=== PATIENT | female | born 1950 | race Caucasian/White ===

== ENCOUNTER 2017-01-25 18:00 | Emergency (ER) | payer OTHER, MEDICAID ==
[~2017-01-25 18:00] MED LIST: AMLODIPINE BESY10 M1 PO; AMLODIPINE10 M1 PO; BG MC; COL100 PO; DIALYVITE 8001 TAB PO; DIOVAN320 MG PO; ECO81 PO; FLA500 PO; GABAPENTIN400 M1 PO; GLU5 PO; HYDROCHLOROTHIA25 MG PO; LAC PO; LANTUS SOLOS100 U/M1; LANTUS SOLOS100 U/M1 SQ; LEVAQUIN250 MG PO; LIPI10 PO; LIPITOR10 MG PO; LOPRESSOR50 MG PO; LOSARTAN POTAS100 M1 PO; MAC100 PO; METFORMIN HCL850 MG PO; METOPROLOL SUCC50 M2 PO; METOPROLOL TART50 MG PO; NEPHRO-VITE1 TAB PO; NEURONTIN400 MG PO; OMEPRAZOLE DR20 M1 PO; PHOSLO667 MG PO; PRI20 PO; PROZAC40 MG PO; RENVELA800 M1 PO; THERAGRAN-M1 TA4 PO
[2017-01-25 18:06] VITALS: BP 149/58
== END 2017-01-25 19:06 | disposition left against medical advice (07) ==
LOC: ED 18:00
DX: Z53.21 Procedure and treatment not carried out due to patient leaving prior to being seen by health care provider (principal)

== ENCOUNTER 2017-04-08 00:01 | Emergency (ER) | payer OTHER, MEDICAID ==
[2017-04-08 01:19] LABS: BASOPHIL % 0.4 % (0-2); PLATELET COUNT 198 x10^3mcL (130-400); RED CELL DISTRIBUTION WIDTH 13.6 % (11.5-14.5)
[2017-04-08 01:32] LABS: ALBUMIN 3.6 g/dL (3.4-5.0); BILIRUBIN TOTAL 0.5 mg/dL (0.20-1.00); CALCIUM 8.9 mg/dL (8.5-10.1); CARBON DIOXIDE 30.1 mmol/L (21-32); POTASSIUM SERUM 4.9 mmol/L (3.5-5.1); TOTAL PROTEIN, SERUM 7.8 g/dL (6.4-8.2)
[2017-04-08 01:38] LABS: CREATININE SERUM 8.6 mg/dL (0.6-1.0)
[2017-04-08 02:25] VITALS: BP 170/79
== END 2017-04-08 02:25 | disposition home or self-care (01) ==
LOC: ED 00:01
PROVIDERS: Emergency Medicine
DX: R07.89 Other chest pain (principal); E11.22 Type 2 diabetes mellitus with diabetic chronic kidney disease; I12.0 Hypertensive chronic kidney disease with stage 5 chronic kidney disease or end stage renal disease; N18.6 End stage renal disease; E78.00 Pure hypercholesterolemia, unspecified; F43.9 Reaction to severe stress, unspecified; Z99.2 Dependence on renal dialysis
CPT/HCPCS: 36415; J1885

== ENCOUNTER 2017-05-10 15:06 | Inpatient (IN) | payer OTHER, MEDICAID ==
[~2017-05-10] VITALS: Ht 154.9 cm; Wt 74.0 kg
[2017-05-10 16:53] LABS: BASOPHIL % 0.2 % (0-2); PLATELET COUNT 286 x10^3mcL (130-400); RED CELL DISTRIBUTION WIDTH 13.5 % (11.5-14.5)
[2017-05-10 17:20] LABS: CALCIUM 8.7 mg/dL (8.5-10.1); CARBON DIOXIDE 33.4 mmol/L (21-32); CREATININE SERUM 2.8 mg/dL (0.6-1.0); POTASSIUM SERUM 3.5 mmol/L (3.5-5.1)
[2017-05-10 17:26] LABS: ALBUMIN 3.5 g/dL (3.4-5.0); BILIRUBIN TOTAL 0.29 mg/dL (0.20-1.00); PHOSPHOROUS 1.9 mg/dL (2.5-4.9); TOTAL PROTEIN, SERUM 8.1 g/dL (6.4-8.2)
[2017-05-10 18:06] LABS: UA SPECIFIC GRAVITY 1.015 (1.005-1.035); microscopic required? YES; urine erythrocyte 1+ (NEGATIVE)
[2017-05-10] MEDS ORDERED: GABAPENTIN400 M1 PO (18:38)
[2017-05-10] MEDS ORDERED: FUROSEMIDE80 MG PO (18:39)
[2017-05-10] MEDS ORDERED: NOR10 PO (18:39)
[2017-05-10] MEDS ORDERED: DIALYVITE 8001 TAB PO (18:40)
[2017-05-10] MEDS ORDERED: LIPI10 PO (18:40)
[2017-05-10] MEDS ORDERED: STOOL SOFTENER100 MG PO (18:41)
[2017-05-10] MEDS ORDERED: COZAAR100 MG PO (18:41)
[2017-05-10] MEDS ORDERED: GOOD SENSE OMEP20 MG PO (18:42)
[2017-05-10 19:10] LABS: MAGNESIUM 2.1 mg/dL (1.8-2.4)
[2017-05-10 19:14] LABS: AMPHETAMINE QUAL UR NONE DETECTED (NEG <=1000)
[2017-05-10 19:16] LABS: T3 TOTAL 0.83 ng/mL
[2017-05-10 19:17] VITALS: BP 181/58
[2017-05-10 19:30] LABS: FREE T4 1.27 ng/dL (0.76-1.46); FREE THYROXINE INDEX 2.9 ug/dL (1.4-4.5); T4(THYROXINE) 8.7 ug/dL (4.7-13.3)
[2017-05-10 19:42] LABS: CHOLESTEROL/HDL RATIO 3.5
[2017-05-10 21:24] VITALS: BP 104/69
[2017-05-10 22:37] VITALS: BP 166/50
[2017-05-11] VITALS (8 sets, daily range): BP systolic 155–185; BP diastolic 50–99; Ht 154.9 cm; Wt 74.0 kg
[2017-05-11 10:17] LABS: BASOPHIL % 0.3 % (0-2); PLATELET COUNT 239 x10^3mcL (130-400); RED CELL DISTRIBUTION WIDTH 13.6 % (11.5-14.5)
[2017-05-11 10:42] LABS: CARBON DIOXIDE 31.9 mmol/L (21-32); MAGNESIUM 1.9 mg/dL (1.8-2.4); PHOSPHOROUS 2.6 mg/dL (2.5-4.9); POTASSIUM SERUM 4.2 mmol/L (3.5-5.1)
[2017-05-11 10:53] LABS: CREATININE SERUM 4.4 mg/dL (0.6-1.0)
[2017-05-12 05:40] VITALS: BP 161/53
[2017-05-12 07:30] VITALS: BP 189/63
[2017-05-12 09:10] VITALS: BP 176/59
[2017-05-12 10:18] VITALS: BP 169/55
[2017-05-12 10:49] VITALS: BP 169/55
== END 2017-05-12 11:15 | disposition home or self-care (01) | DRG 391 ==
LOC: ED 15:06 → DU 18:02
PROVIDERS: Emergency Medicine; Family Medicine; ADMIT Family Medicine
DX: K21.9 Gastro-esophageal reflux disease without esophagitis (principal); N17.0 Acute kidney failure with tubular necrosis; N18.6 End stage renal disease; I12.0 Hypertensive chronic kidney disease with stage 5 chronic kidney disease or end stage renal disease; N39.0 Urinary tract infection, site not specified; I42.9 Cardiomyopathy, unspecified; B96.20 Unspecified Escherichia coli [E. coli] as the cause of diseases classified elsewhere; I16.0 Hypertensive urgency; E83.39 Other disorders of phosphorus metabolism; E11.65 Type 2 diabetes mellitus with hyperglycemia; E11.51 Type 2 diabetes mellitus with diabetic peripheral angiopathy without gangrene; G47.00 Insomnia, unspecified; D64.9 Anemia, unspecified; E78.5 Hyperlipidemia, unspecified; E03.9 Hypothyroidism, unspecified; Z16.12 Extended spectrum beta lactamase (ESBL) resistance; Z16.24 Resistance to multiple antibiotics; Z99.2 Dependence on renal dialysis; Z79.82 Long term (current) use of aspirin; Z79.84 Long term (current) use of oral hypoglycemic drugs; Z68.30 Body mass index [BMI] 30.0-30.9, adult
CPT/HCPCS: 83880; 84439; J0360; J0696; J3490; J7050; Q0163

== ENCOUNTER 2017-10-05 01:10 | Inpatient (IN) | payer OTHER, MEDICAID ==
[~2017-10-05] VITALS: Ht 154.9 cm; Wt 77.6 kg
[2017-10-05] VITALS (7 sets, daily range): BP systolic 171–210; BP diastolic 49–66
[~2017-10-05 01:10] MED LIST changes: +COZAAR100 MG PO; +FUROSEMIDE80 MG PO; +GOOD SENSE OMEP20 MG PO; +NOR10 PO; +STOOL SOFTENER100 MG PO
--- NOTE | 2017-10-05 01:43 | NUR ---
PT C/O CHEST PAIN AND HEADACHE 9/10 SINCE 1 HR AGO. PT IS ESRD RECEIVES DIALYSIS, NO OTHER PMHX NOTED. PT IS IN NO ACUTE DISTRESS
[2017-10-05 02:39] LABS: BASOPHIL % 0.4 % (0-2); PLATELET COUNT 193 x10^3mcL (130-400)
[2017-10-05 02:49] LABS: CALCIUM 8.6 mg/dL (8.5-10.1); CARBON DIOXIDE 32.7 mmol/L (21-32); CREATININE SERUM 2.6 mg/dL (0.6-1.0); POTASSIUM SERUM 3.7 mmol/L (3.5-5.1)
[2017-10-05 02:58] LABS: ALBUMIN 3.5 g/dL (3.4-5.0); BILIRUBIN TOTAL 0.5 mg/dL (0.20-1.00); TOTAL PROTEIN, SERUM 7.7 g/dL (6.4-8.2)
--- NOTE | 2017-10-05 03:42 | NUR ---
PT RESTING IN NO ACUTE DISTRESS NO C/O CP NOW
[2017-10-05] MEDS ORDERED: ATENOLOL50 MG PO (03:45)
--- NOTE | 2017-10-05 04:00 | NUR ---
PT RESTING IN STRECTHER, NO ACUTE DISTRESS NOTED. WILL CONT TO MONITOR
--- NOTE | 2017-10-05 04:22 | NUR ---
DR. JEAN AT BEDSIDE, PT IN NO ACUTE DISTRESS
--- NOTE | 2017-10-05 04:32 | NUR ---
REPORT CALLED TO FLOOR AND TAKE BY TAMELA
--- NOTE | 2017-10-05 05:08 | NUR ---
REC'D PT FROM ED VIA KADI. AAOX4. [place]ONG KONGER SPEAKING ONLY. ABLE TO MAKE NEEDS KNOWN. ORIENTED TO ROOM AND SURROUNDINGS. TELE# 23 SINUS BRADYCARDIA 57. LUNG SOUNDS CTA. NO SOB, ON 2L NC. BREATHING EVEN AND UNLABORED. ABD ROUND AND ACTIVE, LBM 10/04/17. NO EDEMA NOTED. IV ACCESS TO THE RAC INTACT. BED IN LOWEST POSITION. CALL LIGHT WITHIN REACH. WILL PROCEED TO THE PLAN OF CARE.
[2017-10-05 05:33] LABS: IRON 56 ug/dL (50-170)
[2017-10-05 05:34] LABS: TOTAL IRON BINDING CAPACITY 238 ug/dL (250-450)
[2017-10-05 05:39] LABS: RED BLOOD CELLS 3.31 M/mm3 (4.10-5.10)
[2017-10-05 05:43] LABS: T3 TOTAL 0.74 ng/mL
[2017-10-05 05:46] LABS: FREE T4 1.34 ng/dL (0.76-1.46); FREE THYROXINE INDEX 3.2 ug/dL (1.4-4.5); T4(THYROXINE) 8.1 ug/dL (4.7-13.3)
--- NOTE | 2017-10-05 06:58 | NUR ---
PT IS RESTING WITH THE HOB ELEVATED. NO REP DISTRESS NOTED. DENIES PAIN AT THIS TIME. ALL NEEDS MET AND ATTENDED TO. BS 197, PT REFUSED COVERAGE. DR JEAN MADE AWARE. IV ACCESS PATENT AND INTACT. WILL ENDORSE ALL CARE TO ONCOMING NURSE.
--- NOTE | 2017-10-05 07:44 | NUR ---
RECEIVED PT FROM NIGHT NURSE IN NO ACUTE DISTRESS. RESPIRATIONS EVEN AND UNLABORED ON 2L VIA NC. PT ENCOURAGED TO USE IS. ABX INFUSING AT BEDSIDE. BED IN LOWEST POSITION. CALL LIGHT WITHIN REACH. WILL CONTINUE TO MONITOR.
[2017-10-05 11:19] LABS: PHOSPHOROUS 2.1 mg/dL (2.5-4.9)
[2017-10-05 11:20] LABS: CHOLESTEROL/HDL RATIO 2.2
--- NOTE | 2017-10-05 12:20 | NUR ---
PT RESTING IN BED IN NO ACUTE DISTRESS, RESPIRATIONS EVEN AND UNLABORED ON 2L VIA NC. AAOX4. ABX INFUSING AT BEDSIDE. BED IN LOWEST POSITION. CALL LIGHT WITHIN REACH. WILL CONTINUE TO MONITOR.
--- NOTE | 2017-10-05 13:44 | NUR ---
1. Recommend Renal, CCHO 60gm diet due to pt with DM and ESRD on HD. 2. Recommed D/C Theragran.
--- NOTE | 2017-10-05 13:44 | NUR ---
Initial Nutrition Assessment Dx: CHF exacerbation PMHx: CHF, ESRD on HD, DLD, DM PSHx: Cholecystectomy, (x2), AVF fistula Labs: (10/05) Na:134L, BH, Cr:2.6H, Phos:pending, A1c:7.6H, H/H:10.6/31L Meds: Colace, Glucotrol, Humulin, Lactinex, Lasix, Nephrovite, Theragran, Vasotec, Zofran Diet:CCCHO PO Intake: (10/05) B:80% Ht: 61in, 5'1" Wt: 170#, 77.28kg BMI: 32.2kg/m2 (obesiry classI) IBW: 105#, 47.7kg %IBW: 162% UBW:pt does not know Age:67 y/o female Food Allergies:NKFA Skin: intact;+shunt to left arm Markos:21 Edema:None GI: active bowel sounds Last BM:10/04, formed Nursing Trigger: N/V/D>3days Pt admitted with ACSDHF with BNP 2272 likely secondary to ESRD, possible aspiration pneumonia and VMN with Cr 2.6, 2/2 ESRD on HD. Pt had been c/o SOB and CP x 2 weeks per H&P. During visit, observed pt laying in bed with at bedside. Pt's translated during RD interview. Pt reports to having a fair appetite (ate 80% of breakfast). RD noticed pt with missing top teeth but pt said current diet texture is fine. Pt with nausea earlier this morning but now resolved once medication was given. Spoke to Dr. Murphy about adding renal restricton to current diet order and discontinuing Theragran, since pt is on renal vitamin (Nephrovite). Doctor agreeable with reocmmendations and input order. Problem with: N: No V:No D: No C:No Problems with: Chewing:missing teeth with no chewing problems Swallowing: No Current appetite: Fair to good Recent wt change:unable to assess %wt change:N/A Vitamin/Supplement use:MVI Special diet at home:pt does not follow a renal or diabetic diet at home Physical activity: Walking Education: pt and declined nutrition education at this time due to being familiar with renal/CCHO diet. Estimated Nutritional Needs Based on ideal body weight 48kg Energy: 1440-1680kcal/d (30-35kcal/kg for ESRD on HD) Protein: 58-72g/d (1.2-1.5g/kg for ESRD on HD) Fluid: <1000ml/d or per doctor for ESRD on HD Nutrition Diagnosis 1. Altered nutrition labs related to renal and endocrine dysfunction as evidenced by elevated Cr:2.6, B and A1c:7.6. Intervention 1. Recommend Renal, CCHO 60gm diet due to pt with DM and ESRD on HD. 2. Recommed D/C Theragran. Monitor/Evaluate Goal: PO intake at least 75% of estimated needs Monitor: PO intake, Labs, GI function F/U in 3-5 days as moderate risk:10/08-
--- NOTE | 2017-10-05 18:11 | NUR ---
PT RESTING IN BED IN NO ACUTE DISTRESS. RESPIRATIONS EVEN AND UNLABORED ON 2L VIA NC. AAOX4. IVF INFUSING AT BEDSIDE AT 10ML/HR. FAMILY AT BEDSIDE. BED IN LOWEST POSITION. CALL LIGHT WITHIN REACH. WILL CONTINUE TO MONITOR.
--- NOTE | 2017-10-05 19:37 | NUR ---
REC'D REPORT FROM DAY NURSE BRITANY. AAOX4. SLOVENIAN SPEAKING ONLY. ABLE TO MAKE NEEDS KNOWN. NO RESP DISTRESS NOTED. DENIES CP. TELE# 23. LUNG SOUNDS ARE CTA. ON 2L NC. NO SOB. BREATHING EVEN AND UNLABORED. ABD IS ROUND AND ACTIVE. L UPPER ARM SHUNT WITH BRUIT/THRILL NOTED. NO EDEMA NOTED. IV ACCESS TO THE RAC PATENT AND INTACT INFUSING WELL. BED IN LOWEST POSITION. AT BEDSIDE. CALL LIGHT WITHIN REACH. WILL PROCEED TO THE PLAN OF CARE.
--- NOTE | 2017-10-05 19:42 | NUR ---
DR LAN MADE AWARE OF PT BP AT 183/49, HR 58, AND WILL BE HOLDING HYDRALAZINE SINCE PT WILL BE HAVING HEMODIALYSIS THIS EVENING.
--- NOTE | 2017-10-05 21:13 | NUR ---
HEMODIALYSIS NURSE IN THE ROOM WITH PT.
--- NOTE | 2017-10-05 23:57 | NUR ---
HEMODIALYSIS NURSE HERBERTH HAD STOPPED DUE TO THE C/O OF THE PAIN HAVING CHEST PAIN. BP 198/58, HR 58, O2 SAT 98%. WILL BE GIVING HYDRALAZINE.
[2017-10-06 00:21] VITALS: BP 181/51
--- NOTE | 2017-10-06 00:22 | NUR ---
PT GIVEN PAIN MED HEADACHE AND SCHEDULE MEDS. RE-CHECKED PT V/S BP 181/51 (86), HR 65, TEMP 99.8, O2 SAT 98%. WILL CONT TO MONITOR.
[2017-10-06 05:34] VITALS: BP 122/50
--- NOTE | 2017-10-06 05:46 | NUR ---
ROUNDS MADE, PT IS SLEEPING BUT EASILY AROUSABLE. NO RESP DISTRESS NOTED. WILL CONT TO MONITOR.
[2017-10-06 06:20] LABS: CALCIUM 8.7 mg/dL (8.5-10.1); CARBON DIOXIDE 28.4 mmol/L (21-32); MAGNESIUM 1.9 mg/dL (1.8-2.4); PHOSPHOROUS 3.2 mg/dL (2.5-4.9); POTASSIUM SERUM 3.1 mmol/L (3.5-5.1)
--- NOTE | 2017-10-06 06:24 | NUR ---
PT SLEPT PERIODICALLY THROUGHOUT THE SHIFT. NO RESP DISTRESS NOTED. DENIES CP. ALL NEEDS MET AND ATTENDED TO. IV ACCESS PATENT AND HEPLOCK. WILL ENDORSE ALL CARE TO ONCOMING NURSE.
[2017-10-06 06:26] LABS: BASOPHIL % 0.5 % (0-2); PLATELET COUNT 194 x10^3mcL (130-400); RED CELL DISTRIBUTION WIDTH 14.2 % (11.5-14.5)
--- NOTE | 2017-10-06 07:29 | NUR ---
RECEIVED PT FROM NIGHT NURSE IN NO ACUTE DISTRESS. PT RESTING IN BED, RESPIRATIONS EVEN AND UNLABORED ON 2L VIA NC. AAOX4. DENIES CP. BED IN LOWEST POSITION. CALL LIGHT WITHIN REACH. WILL CONTINUE TO MONITOR.
[2017-10-06 08:58] VITALS: BP 184/47
--- NOTE | 2017-10-06 13:59 | NUR ---
PT RESTING IN BED IN NO ACUTE DISTRESS. RESPIRATIONS EVEN AND UNLABORED ON 2L VIA NC. AAOX4. PT HEPLOCKED, SITE C/D/I. FAMILY AT BEDSIDE. BED IN LOWEST POSITION. CALL LIGHT WITHIN REACH. WILL CONTINUE TO MONITOR.
[2017-10-06 14:30] VITALS: BP 163/59
[2017-10-06 17:55] VITALS: BP 184/50
--- NOTE | 2017-10-06 19:07 | NUR ---
PT RESTING IN BED IN NO ACUTE DISTRESS. RESPIRAITIONS EVEN AND UNLABORED ON 2L VIA NC. IV HEPLOCKED, C/D/I. FAMILY AT BEDSIDE. BED IN LOWEST POSITION. CALL LIGHT WITHIN REACH. WILL ENDORSE TO NIGHT NURSE
--- NOTE | 2017-10-06 19:38 | NUR ---
REC'D PT FROM DAY NURSE. AAOX4. DENIES PAIN AT THIS TIME. NO RESP DISTRESS NOTED. TELE# 23. LUNG SOUNDS ARE CTA. ON 2L NC. NO SOB. BREATHING EVEN AND UNLABORED. ABD IS ROUND AND ACTIVE. L UPPER ARM AVF SHUNT BRUIT/THRILL NOTED. NO EDEMA NOTED. IV ACCESS TO THE RAC PATENT AND HEPLOCKED. BED IN LOWEST POSITION. AT BEDSIDE. CALL LIGHT WITHIN REACH. WILL PROCEED TO THE PLAN OF CARE.
[2017-10-06 20:59] VITALS: BP 170/51
--- NOTE | 2017-10-06 22:40 | NUR ---
ROUNDS MADE, PT IS SLEEPING AND RESTING WELL. NO RESP DISTRESS NOTED. WILL CONT TO MONITOR.
--- NOTE | 2017-10-07 01:31 | NUR ---
ROUNDS MADE, PT IS SLEEPING COMFORTABLY WITH THE HOB ELEVATED. NO S/S OF RESP DISTRESS NOTED. WILL CONT TO MONITOR.
[2017-10-07 05:47] VITALS: BP 171/44
[2017-10-07 06:40] LABS: CALCIUM 8.7 mg/dL (8.5-10.1); CARBON DIOXIDE 27.1 mmol/L (21-32); MAGNESIUM 1.9 mg/dL (1.8-2.4); PHOSPHOROUS 3.8 mg/dL (2.5-4.9); POTASSIUM SERUM 3.9 mmol/L (3.5-5.1)
--- NOTE | 2017-10-07 06:50 | NUR ---
PT SLEPT THROUGHOUT THE SHIFT. NO RESP DISTRESS NOTED. DENIES CP/PRESSURE. BLOOD SUGAR 78, NO COVERAGE. DR JANE MADE AWARE ABOUT HOLDING GLUCOTROL. ALL NEEDS MET AND ATTENDED TO. IV ACCESS RAC, HEPLOCKED. WILL ENDORSE ALL CARE TO ONCOMING NURSE.
[2017-10-07 07:01] LABS: BASOPHIL % 0.2 % (0-2); PLATELET COUNT 192 x10^3mcL (130-400); RED CELL DISTRIBUTION WIDTH 14.3 % (11.5-14.5)
--- NOTE | 2017-10-07 07:15 | NUR ---
AAO X4.CAPE VERDEAN MOSTLY.DENIES ANY PAIN/DISCOMFORT.LUNGS CLEAR.ON SB ON THE MONITOR HR=58.IV SALINE LOCKED.LUKE WITH AV SHUNT FOR DIALYSIS WITH + BRUIT AND THRILL.DIALYSIS MWF.CALL LIGHT WITHIN REACH.INSTRUCTED TO CALL FOR ANY PAIN/DISCOMFORT.WILL CONTINUE TO MONITOR PT.
--- NOTE | 2017-10-07 08:10 | NUR ---
AND MEDICINE TEAM AT BEDSIDE.INFORMED PT ABOUT THE PLAN OF CARE.WILL D/C TODAY AND WILL HAVE DIALYSIS OUT PATIENT.PT COOPERATIVE WITH THE PLAN OF CARE.
[2017-10-07] MEDS ORDERED: NOR10 PO (09:06)
[2017-10-07] MEDS ORDERED: ECO81 PO (09:06)
[2017-10-07 09:28] VITALS: BP 186/85
[2017-10-07 10:50] VITALS: BP 115/49
[2017-10-07 11:45] VITALS: Ht 154.9 cm; Wt 77.6 kg
--- NOTE | 2017-10-07 11:51 | NUR ---
PT D/C TO HOME IV AND MONITOR D/'C.DISCHARGE INSTRUCTION GIVEN.PT VERBALIZES UNDERSTANDING.WENT DOWN VIA WHEELCHAIR ACCOMPANIED BY AND FINISH GRINDER.
== END 2017-10-07 12:03 | disposition home or self-care (01) | DRG 640 ==
LOC: ED 01:10 → DU 03:51
PROVIDERS: Emergency Medicine; Family Medicine; ADMIT Family Medicine
DX: E87.8 Other disorders of electrolyte and fluid balance, not elsewhere classified (principal); I50.43 Acute on chronic combined systolic (congestive) and diastolic (congestive) heart failure; N17.0 Acute kidney failure with tubular necrosis; N18.6 End stage renal disease; I13.2 Hypertensive heart and chronic kidney disease with heart failure and with stage 5 chronic kidney disease, or end stage renal disease; I16.0 Hypertensive urgency; M94.0 Chondrocostal junction syndrome [Tietze]; E87.1 Hypo-osmolality and hyponatremia; E87.6 Hypokalemia; E11.22 Type 2 diabetes mellitus with diabetic chronic kidney disease; E11.65 Type 2 diabetes mellitus with hyperglycemia; D63.1 Anemia in chronic kidney disease; E03.9 Hypothyroidism, unspecified; E66.9 Obesity, unspecified; Z68.31 Body mass index [BMI] 31.0-31.9, adult; Z99.2 Dependence on renal dialysis
CPT/HCPCS: 83880; 84439; 94150; J0360; J1940; J1956; J2405; J3490; J7620; Q0092

== ENCOUNTER 2018-12-09 10:59 | Inpatient (IN) | payer OTHER, MEDICAID ==
[~2018-12-09] VITALS: Ht 154.9 cm; Wt 74.4 kg
[~2018-12-09 10:59] MED LIST changes: +AMLODIPINE BESY10 M2 PO; +AMOXICILLIN500 M1 PO; +ATENOLOL50 MG PO; +ATORVASTATIN CA10 M1 PO; +DIALYVITE1 TAB PO; +GABAPENTIN100 M2 PO; +LANTUS SOLOS100 U/M1 SC; +NAPROSYN500 MG PO; +OMEPRAZOLE40 M1 PO; +TENORMIN50 MG PO; +ZITHROMAX500 MG PO; +[UNRECOGNIZED DRUG - CODE] PO; +[UNRECOGNIZED DRUG - CODE] PO
[2018-12-09 11:08] VITALS: Ht 154.9 cm; Wt 74.4 kg
[2018-12-09 11:46] LABS: BASOPHIL % 0.3 % (0-2); PLATELET COUNT 184 x10^3mcL (130-400)
[2018-12-09 11:53] LABS: RED CELL DISTRIBUTION WIDTH 14.9 % (11.5-14.5)
[2018-12-09 12:10] LABS: ALBUMIN 3.4 g/dL (3.4-5.0); BILIRUBIN TOTAL 0.8 mg/dL (0.20-1.00); CALCIUM 7.8 mg/dL (8.5-10.1); CARBON DIOXIDE 22.5 mmol/L (21-32)
[2018-12-09 12:12] LABS: TOTAL PROTEIN, SERUM 8.3 g/dL (6.4-8.2)
[2018-12-09 12:13] LABS: CREATININE SERUM 9.1 mg/dL (0.6-1.0); POTASSIUM SERUM 6.3 mmol/L (3.5-5.1)
[2018-12-09] MEDS ORDERED: DIALYVITE1 TAB PO (13:42)
[2018-12-09] MEDS ORDERED: TIZANIDINE4 M1 PO (13:42)
[2018-12-09] MEDS ORDERED: ATENOLOL50 MG PO (13:43)
[2018-12-09] MEDS ORDERED: D3-50001 TAB PO (13:43)
[2018-12-09] MEDS ORDERED: AMLODIPINE BESY10 M2 PO (13:44)
[2018-12-09] MEDS ORDERED: GABAPENTIN100 M2 PO (13:44)
[2018-12-09] MEDS ORDERED: OMEPRAZOLE40 M1 PO (13:45)
[2018-12-09] MEDS ORDERED: TIROSINT50 MC1 PO (13:45)
[2018-12-09 15:04] VITALS: BP 155/63
[2018-12-09 15:34] VITALS: BP 155/63
[2018-12-09 17:06] VITALS: BP 151/59
[2018-12-09 21:54] VITALS: BP 165/47
[2018-12-10 02:45] VITALS: BP 165/48
[2018-12-10 06:08] VITALS: BP 155/59
[2018-12-10 06:42] LABS: BASOPHIL % 0.1 % (0-2); PLATELET COUNT 173 x10^3mcL (130-400)
[2018-12-10 06:44] LABS: RED CELL DISTRIBUTION WIDTH 14.8 % (11.5-14.5)
[2018-12-10 07:03] LABS: CALCIUM 8.2 mg/dL (8.5-10.1); CARBON DIOXIDE 23.6 mmol/L (21-32); MAGNESIUM 2.2 mg/dL (1.8-2.4); POTASSIUM SERUM 4.7 mmol/L (3.5-5.1)
[2018-12-10 08:45] VITALS: BP 161/51
[2018-12-10 12:30] VITALS: BP 154/52
[2018-12-10 17:34] VITALS: BP 116/47
[2018-12-10 20:30] VITALS: BP 148/56
[2018-12-11 05:51] VITALS: BP 143/65
[2018-12-11 06:01] LABS: BASOPHIL % 0.1 % (0-2); PLATELET COUNT 178 x10^3mcL (130-400)
[2018-12-11 06:17] LABS: RED CELL DISTRIBUTION WIDTH 15.1 % (11.5-14.5)
[2018-12-11 06:36] LABS: CALCIUM 8.5 mg/dL (8.5-10.1); CARBON DIOXIDE 21.1 mmol/L (21-32); MAGNESIUM 2.3 mg/dL (1.8-2.4); PHOSPHOROUS 7.3 mg/dL (2.5-4.9); POTASSIUM SERUM 5.2 mmol/L (3.5-5.1)
[2018-12-11 07:17] LABS: CREATININE SERUM 7.9 mg/dL (0.6-1.0)
[2018-12-11 08:45] VITALS: BP 148/40
[2018-12-11 12:29] VITALS: BP 157/46
[2018-12-11 17:00] VITALS: BP 102/47; BP 151/41
[2018-12-11 20:38] VITALS: BP 137/60
[2018-12-12 06:30] VITALS: BP 163/48
[2018-12-12 06:46] LABS: PLATELET COUNT 211 x10^3mcL (130-400)
[2018-12-12 06:58] LABS: CALCIUM 8.9 mg/dL (8.5-10.1); CARBON DIOXIDE 26.4 mmol/L (21-32); PHOSPHOROUS 5.1 mg/dL (2.5-4.9); POTASSIUM SERUM 4.4 mmol/L (3.5-5.1)
[2018-12-12 07:02] LABS: CREATININE SERUM 5.3 mg/dL (0.6-1.0); RED CELL DISTRIBUTION WIDTH 14.8 % (11.5-14.5)
[2018-12-12 07:03] LABS: BASOPHIL % 0 % (0-2)
[2018-12-12 08:27] VITALS: BP 158/48
[2018-12-12] MEDS ORDERED: AMOXICILLIN500 MG PO (08:50)
[2018-12-12] MEDS ORDERED: ROBL PO (08:50)
[2018-12-12] MEDS ORDERED: PRE20 PO (08:51)
[2018-12-12 12:28] VITALS: BP 158/48
[2018-12-12 12:36] VITALS: BP 161/49
== END 2018-12-12 15:36 | disposition home or self-care (01) | DRG 682 ==
LOC: ED 10:59 → DU 13:07
PROVIDERS: ADMIT Internal Medicine
DX: I12.0 Hypertensive chronic kidney disease with stage 5 chronic kidney disease or end stage renal disease (principal); J18.9 Pneumonia, unspecified organism; N18.6 End stage renal disease; J96.00 Acute respiratory failure, unspecified whether with hypoxia or hypercapnia; E87.1 Hypo-osmolality and hyponatremia; J44.1 Chronic obstructive pulmonary disease with (acute) exacerbation; E11.22 Type 2 diabetes mellitus with diabetic chronic kidney disease; E11.65 Type 2 diabetes mellitus with hyperglycemia; E87.5 Hyperkalemia; F41.8 Other specified anxiety disorders; E03.9 Hypothyroidism, unspecified; M19.90 Unspecified osteoarthritis, unspecified site; I25.10 Atherosclerotic heart disease of native coronary artery without angina pectoris; Z68.30 Body mass index [BMI] 30.0-30.9, adult; Z95.0 Presence of cardiac pacemaker; Z79.4 Long term (current) use of insulin; Z79.84 Long term (current) use of oral hypoglycemic drugs; Z99.2 Dependence on renal dialysis
CPT/HCPCS: 82962; 83880; 87804; 94150; C9113; J0885-EC; J1815; J2185; J2405; J2543; J2920; J3370; J3490; J7030; J7050; J7120; J7613; J7620; Q0092

== ENCOUNTER 2019-01-31 02:26 | Inpatient (IN) | payer OTHER, MEDICAID ==
[~2019-01-31] VITALS: Ht 157.5 cm; Wt 73.0 kg
[2019-01-31] VITALS (7 sets, daily range): BP systolic 136–203; BP diastolic 49–66
[~2019-01-31 02:26] MED LIST changes: +AMOXICILLIN500 MG PO; +D3-50001 TAB PO; +PRE20 PO; +ROBL PO; +TIROSINT50 MC1 PO; +TIZANIDINE4 M1 PO
[2019-01-31 03:03] LABS: BASOPHIL % 0.2 % (0-2); PLATELET COUNT 317 x10^3mcL (130-400)
[2019-01-31 03:04] LABS: RED CELL DISTRIBUTION WIDTH 16.1 % (11.5-14.5)
[2019-01-31 03:26] LABS: ALBUMIN 3.7 g/dL (3.4-5.0); BILIRUBIN TOTAL 0.44 mg/dL (0.20-1.00); CALCIUM 8.9 mg/dL (8.5-10.1); CARBON DIOXIDE 34.1 mmol/L (21-32); TOTAL PROTEIN, SERUM 7.7 g/dL (6.4-8.2)
[2019-01-31 03:29] LABS: CREATININE SERUM 4.7 mg/dL (0.6-1.0)
[2019-01-31 05:46] LABS: T3 TOTAL 0.72 ng/mL
[2019-01-31 06:23] LABS: MAGNESIUM 2.1 mg/dL (1.8-2.4); PHOSPHOROUS 2.8 mg/dL (2.5-4.9)
[2019-01-31 06:33] LABS: FREE T4 1.39 ng/dL (0.76-1.46); FREE THYROXINE INDEX 3.8 ug/dL (1.4-4.5); T4(THYROXINE) 9.5 ug/dL (4.7-13.3)
[2019-01-31 06:34] LABS: CHOLESTEROL/HDL RATIO 4.2
[2019-02-01 05:58] VITALS: BP 180/52
[2019-02-01 08:48] VITALS: BP 171/48
[2019-02-01 12:16] VITALS: BP 157/49
[2019-02-01 17:29] VITALS: BP 166/52
[2019-02-01 20:54] VITALS: BP 160/54
[2019-02-02 06:12] VITALS: BP 163/52
[2019-02-02 06:42] LABS: BASOPHIL % 0.4 % (0-2); PLATELET COUNT 288 x10^3mcL (130-400)
[2019-02-02 07:04] LABS: CALCIUM 8.4 mg/dL (8.5-10.1); CARBON DIOXIDE 26.3 mmol/L (21-32); MAGNESIUM 2.1 mg/dL (1.8-2.4); PHOSPHOROUS 4.2 mg/dL (2.5-4.9); POTASSIUM SERUM 4.1 mmol/L (3.5-5.1)
[2019-02-02 07:08] LABS: CREATININE SERUM 6.2 mg/dL (0.6-1.0)
[2019-02-02 08:01] VITALS: BP 175/59
[2019-02-02 12:12] VITALS: BP 155/47
[2019-02-02 17:20] VITALS: BP 143/52
[2019-02-02 20:38] VITALS: BP 168/50
[2019-02-03 05:27] VITALS: BP 159/57
[2019-02-03 09:24] VITALS: BP 165/51
[2019-02-03 12:03] VITALS: BP 148/53
[2019-02-03 13:07] VITALS: BP 148/53
[2019-02-03 16:36] VITALS: BP 119/51
[2019-02-03 18:55] VITALS: BP 142/52
== END 2019-02-03 19:02 | disposition home or self-care (01) | DRG 205 ==
LOC: ED 02:26 → DU 05:02
PROVIDERS: Emergency Medicine; ADMIT Internal Medicine
DX: M94.0 Chondrocostal junction syndrome [Tietze] (principal); N17.0 Acute kidney failure with tubular necrosis; N18.6 End stage renal disease; G90.9 Disorder of the autonomic nervous system, unspecified; I16.0 Hypertensive urgency; E11.65 Type 2 diabetes mellitus with hyperglycemia; E78.5 Hyperlipidemia, unspecified; E03.9 Hypothyroidism, unspecified; M19.90 Unspecified osteoarthritis, unspecified site; Z79.4 Long term (current) use of insulin; Z86.73 Personal history of transient ischemic attack (TIA), and cerebral infarction without residual deficits; Z90.49 Acquired absence of other specified parts of digestive tract; Z83.3 Family history of diabetes mellitus; Z82.49 Family history of ischemic heart disease and other diseases of the circulatory system; Z99.2 Dependence on renal dialysis; Z95.0 Presence of cardiac pacemaker
CPT/HCPCS: 82962; 83880; 84439; 87804; 97112-GP; 97116-GP; 97530-GP; J7030; Q0092

== ENCOUNTER 2019-03-01 23:52 | Inpatient (IN) | payer OTHER, MEDICAID ==
[~2019-03-01] VITALS: Ht 157.5 cm; Wt 73.6 kg
[2019-03-01 23:55] VITALS: Ht 157.5 cm; Wt 73.6 kg
--- NOTE | 2019-03-02 00:13 | NUR ---
PATIENT A/O X UPON ASSESSMENT BROUGHT IN BY FAMILY FOR GENERALIZED WEAKNESS, CONFUSION AND N/V. PATIENTS FAMILY STATES SHE HAS HAD A 20# WEIGHT LOSS WITHIN A 2 WEEK PERIOD AND UNABLE TO HOLD FOOD DOWN. GRANDSON STATES SHE SEEMS DEPRESSED AND "NOT HERSELF". PATIENT ANSWERED QUESTIONS APPROPRIATELY- NO S/S OF DISTRESS NOTED. BREATHING EVEN AND UNLABORED. PATIENT IS A DIALYSIS PATIENT X 5 YEARS AND GOES FOR [place] SAT, AND SATURDAY BUT STATES PATIENT MISSED THIS WEEKS DIALYSIS DUE TO BEING SICK. PATIENT PLACED IN GOWN ON FULL MONITORS FOR CONTINUED OBSERVATION. ASKED FAMILY TO HAVE PATIENT PROVIDE A URINE SAMPLE. WILL CONTINUE TO [facility].
--- NOTE | 2019-03-02 00:18 | NUR ---
PATIENTS FAMILY MISUNDERSTOOD- WAS ADVISED PATIENT UNABLE TO PROVIDE URINE SAMPLE PATIENT DOESN'T HAVE URINE OUTPUT WITH HER ESRD.
[2019-03-02 00:42] LABS: BASOPHIL % 1.2 % (0-2); PLATELET COUNT 241 x10^3mcL (130-400)
[2019-03-02 00:44] LABS: RED CELL DISTRIBUTION WIDTH 14.7 % (11.5-14.5)
[2019-03-02 01:02] LABS: ALBUMIN 3.7 g/dL (3.4-5.0); BILIRUBIN TOTAL 0.39 mg/dL (0.20-1.00); CALCIUM 8.8 mg/dL (8.5-10.1); CARBON DIOXIDE 22.5 mmol/L (21-32); POTASSIUM SERUM 4.8 mmol/L (3.5-5.1); TOTAL PROTEIN, SERUM 7.7 g/dL (6.4-8.2)
[2019-03-02 01:07] LABS: CREATININE SERUM 9.3 mg/dL (0.6-1.0)
[2019-03-02 02:40] LABS: CHOLESTEROL/HDL RATIO 4.3; MAGNESIUM 2.5 mg/dL (1.8-2.4); PHOSPHOROUS 5.1 mg/dL (2.5-4.9)
--- NOTE | 2019-03-02 02:50 | NUR ---
PATIENT RESTING ON GURNEY- BREATHING EVEN AND UNLABORED. NO S/S OF DISTRESS NOTED.
--- NOTE | 2019-03-02 03:03 | NUR ---
GAVE REPORT TO EZEKIEL DONATO FOR FURTHER CARE OF PATIENT.
[2019-03-02 03:55] VITALS: BP 181/80
--- NOTE | 2019-03-02 04:14 | NUR ---
ADMITTED A 68 YEARS OLD FEMALE CAME IN VIA GURNEY ACCOMPANIED BY ER STAFF WITH C/O NAUSEA, GENERALIZED BODY WEAKNESS AND INCREASED CONFUSION AT HOME PER GRANDSON. WITH ADMISSION ORDERS FROM DR BACK AND TO CARRY OUT. TELE#28 NSR ON MONITOR. PATIENT ON HD SCHEDULED EVERY --S AND MISSED HD LAST SATURDAY PER GRANDSON. LEFT ARM AV FISTULA WITH GOOD BRUIT AND THRILL. IV TO RAC INTACT AND INFUSING WELL. PATIENT ABLE TO FOLLOW SIMPLE COMMANDS AND DENIES PAINA ND DISCOMFORT AT THIS TIME. WILL CONTINUE TO MONITOR. BED TO LOWEST POSITION. CALL LIGHT WITHIN REACH.
[2019-03-02 06:20] LABS: CALCIUM 8.7 mg/dL (8.5-10.1); CARBON DIOXIDE 21.5 mmol/L (21-32); MAGNESIUM 2.4 mg/dL (1.8-2.4); POTASSIUM SERUM 4.5 mmol/L (3.5-5.1)
[2019-03-02 06:29] LABS: BASOPHIL % 0.3 % (0-2); PLATELET COUNT 222 x10^3mcL (130-400); RED CELL DISTRIBUTION WIDTH 14.4 % (11.5-14.5)
[2019-03-02 07:04] LABS: CREATININE SERUM 9.4 mg/dL (0.6-1.0)
--- NOTE | 2019-03-02 07:20 | NUR ---
RECEIVED PT FROM SUPERVISOR FABRICATION RN. DROWSY BUT AROUSABLE TO VOICE. TELE#28. NO SIGNS OR INDICATIONS OF CHEST PAIN/PRESSURE. RESPIRATIONS EQUAL AND UNLABORED ON RA. NO ACUTE RESP DISTRESS NOTED. FISTRULA TO LT ARM BRUIT AND THRILL NOTED. IV TO RAC INFILTRATED. IV FLUIDS STOPPED. ARM ELEVATED ON PILLOW. NO SIGNS OR INDICATIONS OF PAIN NOTED. WILL CONTINUE TO MONITOR. CALL LIGHT IN REACH. BED IN LOWEST POSITION. SEIZURE PRECAUTIONS IN PLACE.
--- NOTE | 2019-03-02 08:37 | NUR ---
PAGED DR. CARRILLO REGARDING HD.
--- NOTE | 2019-03-02 08:40 | NUR ---
SPOKE WITH DR. CARRILLO REGARDING HEMODIALYSIS PT WILL BE RECEIVING DIALYSIS TODAY. DIALYSIS NURSE AWARE.
[2019-03-02 09:41] VITALS: BP 127/58
--- NOTE | 2019-03-02 09:55 | NUR ---
PT SITTING UP IN BED. DROWSY BUT AROUSABLE TO VOICE. PT ABLE TO TAKE PO MEDS. TOLERATED WELL. NO ACUTE RESP DISTRESS NOTED ON RA. DR. BARONE AT BEDSIDE. PER DR. BARONE PT WILL STAY ONE MORE NIGHT AFTER RECEIVING DIALYSIS TODAY. WILL CONTINUE TO MONITOR. CALL LIGHT IN REACH. BED IN LOWEST POSITION. SEIZURE PRECAUTIONS IN PLACE.
--- NOTE | 2019-03-02 11:45 | NUR ---
PT ARM SWOLLEN FROM IV. ELEVATED ON PILLOW AND APPLIED WARM COMPRESS. DIABETIC EDUCATED REY RN AT BEDSIDE.
--- NOTE | 2019-03-02 12:35 | NUR ---
PT SITTING UP IN BED. FAMILY AT BEDSIDE. NO ACUTE RESP DISTRESS NOTED ON RA. CHANGED WARM COMPRESSES TO LUKE. LEFT ARM ELEVATED ON PILLOW. WILL CONTINUE TO MONITOR. CALL LIGHT IN REACH. BED IN LOWEST POSITION.
[2019-03-02 13:36] VITALS: BP 190/53
--- NOTE | 2019-03-02 13:51 | NUR ---
PT SITTING UP BED RESTING COMFORTABLY. NO ACUTE RESP DISTRESS NOTED ON RA. IV TO RFA REMOVED CATHETER INTACT. SWELLING HAS GONE DOWN SINCE THIS AM. FAMILY AT BEDSIDE. PER AND PT REFUSED MEDICATION. STATES PT DOES NOT NEED MEDICATION AT THIS TIME. WILL CONTINUE TO MONITOR. CALL LIGHT IN REACH. BED IN LOWEST POSITION. SEIZURE PRECAUTION IN PLACE.
[2019-03-02 16:48] VITALS: BP 177/62
--- NOTE | 2019-03-02 17:49 | NUR ---
PT SITTING UP IN BED. NO ACUTE RESP DISTRESS NOTED ON RA. GIVEN PO MEDS. TOLERATED WELL. PT DENIES ANY PAIN AT THIS TIME. DIALYSIS NURSE AT BEDSIDE. SEIZURE PRECAUTIONS IN PLACE. WILL CONTINUE TO MONITOR. CALL LIGHT IN REACH. BED IN LOWEST POSITION.
--- NOTE | 2019-03-02 19:22 | NUR ---
PT RECEIVED A/O X3, GUAMANIAN SPEAKING, ABLE TO MAKE NEEDS KNOWN. TELE #28, DENIES CP/PRESSURE. PULSES PALPABLE, EDEMA TO BLE. BREATHING IS EVEN AND UNLABORED ON RA, NO RESP DISTRESS NOTED. ABD SOFT AND NONDISTENDED, DENIES N/V. PT ON HD TUES/THUR/SAT, LAST HD TODAY WITH 3L OUTPUT. LEFT ARM FISTULA WITH GOOD BRUIT AND THRILL, DRSG CDI. GENEALIZED/LEFT-SIDED WEAKNESS, PT USES WHEELCHAIR AT BASELINE. SKIN IS WARM AND DRY, INTACT. PT DENIES ANY PAIN AT THIS TIME. SL TO ZOE, PATENT AND INTACT, SITE FREE FROM REDNESS OR SWELLING. FAMILY AT BEDSIDE. BED IN LOWEST SETTING, SIDE RAILS UP X2, CALL LIGHT WITHIN REACH. WILL CONT TO MONITOR.
[2019-03-02 21:09] VITALS: BP 138/47
--- NOTE | 2019-03-03 00:22 | NUR ---
PT RESTING IN BED WITH EYES CLOSED, BUT IS EASILY AROUSABLE. BREATHING IS EVEN AND UNLABORED, NO RESP DISTRESS NOTED. PT DENIES HAVING ANY PAIN AT THIS TIME. SL TO ZOE INTACT. NO ACUTE DISTRESS NOTED. BED ALARM ON, CALL LIGHT WITHIN REACH. WILL CONT TO MONITOR.
[2019-03-03 05:51] VITALS: BP 193/59
--- NOTE | 2019-03-03 05:58 | NUR ---
PT SLEPT WELL THROUGHOUT THE EVENING. BREATHING IS EVEN AND UNLABORED, NO RESP DISTRESS NOTED. PT DENIES HAVING ANY PAIN AT THIS TIME. DRSG TO LEFT ARM FISTULA IN PLACE, CDI. IV TO ZOE, PATENT AND INTACT, SITE FREE FROM REDNESS OR SWELLING. NO ACUTE CHANGES ENCOUNTERED OVERNIGHT. ALL NEEDS MET. BED ALARM ON, CALL LIGHT WITHIN REACH. WILL ENDORSE CARE TO AM NURSE.
[2019-03-03 06:33] LABS: BASOPHIL % 0.2 % (0-2); PLATELET COUNT 208 x10^3mcL (130-400); RED CELL DISTRIBUTION WIDTH 14.3 % (11.5-14.5)
--- NOTE | 2019-03-03 06:41 | NUR ---
PT'S BP-193/59, HR-60. DR DIAZ MADE AWARE. PER DR DIAZ, OKAY TO GIVE ALL THREE MORNING BP MEDS. COZAAR GIVEN ORDERED AT THIS TIME FIRST, THEN WILL RECHECK BP BEFORE GIVING OTHER TWO BP MEDS. PT IN NO ACUTE DISTRESS. CALL LIGHT WITHIN REACH. WILL ENDORSE TO AM NURSE.
[2019-03-03 06:53] LABS: CARBON DIOXIDE 27.8 mmol/L (21-32); MAGNESIUM 2.2 mg/dL (1.8-2.4); PHOSPHOROUS 4.2 mg/dL (2.5-4.9); POTASSIUM SERUM 4.2 mmol/L (3.5-5.1)
[2019-03-03 06:56] LABS: CREATININE SERUM 6.4 mg/dL (0.6-1.0)
--- NOTE | 2019-03-03 07:54 | NUR ---
RECEIVED PATIENT FROM EZEKIEL SHEA. PATIENT IN BED, HAS COMPLAINTS OF NAUSEA. EMESIS BAG GIVEN TO PATIENT. NO VOMITTING NOTED, CLEAR SALIVA EXPELLED INTO EMESIS BAG. PRN ESAU OFFERED, WILL CONTINUE TO MONITOR AT THIS TIME. CALL LIGHT IN REACH.
[2019-03-03 09:03] VITALS: BP 195/62
--- NOTE | 2019-03-03 09:25 | NUR ---
PATIENT HAD X1 EPISODE OF VOMITTING AFTER PO MEDICATIONS GIVEN. PRN ZOFRAN IVP GIVEN FOR NAUSEA. FAMILY IN ROOM, UPSET AT STAFF STATING THAT "NO ONE HELPED [HIS] SIT UP TO EAT". PATIENT IS ALREADY IN HIGH FOWLERS POSITION. NOTIFIED THAT PATIENT WILL BE GETTING HD TREATMENT TODAY. CALL LIGHT IN REACH.
--- NOTE | 2019-03-03 11:00 | NUR ---
PATIENT IN BED, FAMILY AT BEDSIDE. FAMILY CONCERNED ABOUT FEEDING TUBE, NOTIFIED FAMILY THAT DR WAGONER HAS YET TO SEE HER. GTUBE DRESSING CHANGED, FC TUBING CLEAN. WILL NOTIFY DR WAGONER WHEN HE COMES IN TO SEE PATIENT. CALL LIGHT IN REACH.
--- NOTE | 2019-03-03 11:43 | NUR ---
DR RODRIGUEZ & DR BARONE IN TO SEE PATIENT. STATES PATIENT LIKELY TO BE DC TOMORROW. PATIENT CURRENTLY GETTING HD TREATMENT, NO FURTHER SIGNS OF NAUSEA. HD NURSE IN ROOM, CALL LIGHT IN REACH.
[2019-03-03 12:18] VITALS: BP 161/59
[2019-03-03 14:06] VITALS: BP 150/50
--- NOTE | 2019-03-03 15:32 | NUR ---
PATIENT IN BED RESTING. AT BEDSIDE. NO COMPLAINTS OF PAIN NOTED, WILL CONTINUE TO MONITOR. CALL LIGHT IN REACH.
--- NOTE | 2019-03-03 17:52 | NUR ---
PATIENT IN BED RESTING. NO EPISODES OF VOMITTING AT THIS TIME. AT BEDSIDE, ASKED FOR NAUSEA MEDICATION PRIOR TO DINNER TRAY. PRN ZOFRAN 4 MG IVP GIVEN. WILL CONTINUE TO MONITOR, CALL LIGHT IN REACH. WIIL ENDORSE TO ONCOMING NURSE.
--- NOTE | 2019-03-03 19:30 | NUR ---
RECEIVED PT AT THIS TIME. PT AAOX3 DENEIS HEADACHE OR DIZZINESS. TELE #28 100% PACED HR 60 DENIES CHEST PAIN OR PRESSURE. BREATING EVEN AND UNLABORED WITH NO SOB NOTED. IV RFA PATENT, SL. HD SHUNT LEFT UPPER ARM. ABD SOFT AND ROUND, ACTIVE BOWEL SOUNDS, DENIES ABD PAIN N/V. NO SIGNS OF ACUTE DISTRESS NOTED. CALL BUTTON WITHIN REACH. FAMILY AT BEDSIDE. SAFETY PRECAUTIONS IN PLACE. WILL CONTINUE TO MONITOR.
[2019-03-03 20:57] VITALS: BP 163/52
--- NOTE | 2019-03-03 21:30 | NUR ---
ACCU CHECK RESULT OF 207, PT AND FAMILY MEMBER REFUSED INSULIN COVERAGE FOR TONIGHT. WILL NOTIFY RESIDENT WATER PURIFIER AND CONTINUE TO MONITOR.
--- NOTE | 2019-03-04 00:06 | NUR ---
PT RESTING, BREATHING EVEN AND UNLABORED WITH NO SOB NOTED. CALL BUTTON WITHIN REACH. SAFETY PRECAUTIONS IN PLACE. WILL CONTINUE TO MONITOR.
--- NOTE | 2019-03-04 03:00 | NUR ---
PT RESTING, BREATHING EVEN AND UNLABORED WITH NO SIGNS OF DISTRESS NOTED. CALL BUTTON WITHIN REACH. SAFETY PRECAUTIONS IN PLACE. WILL CONTINUE TO MONITOR.
[2019-03-04 05:30] VITALS: BP 179/51
--- NOTE | 2019-03-04 05:32 | NUR ---
PT SLEPT MOST OF THE NIGHT WITH NO SIGNS OF DISTRESS NOTED. BREATHING EVEN AND UNLABORED ON RA, WITH NO SOB NOTED. IV PATENT, SL. PT REPOSITIONED EVERY TWO HOURS. MEDICATED PER EMAR. CALL BUTTON WITHIN REACH. SAFETY/SEIZURE PRECAUTIONS IN PLACE. WILL CONTINUE TO MONITOR AND ENDORSE CARE TO DAY SHIFT RN.
[2019-03-04 06:24] LABS: CALCIUM 9.5 mg/dL (8.5-10.1); CARBON DIOXIDE 29.2 mmol/L (21-32)
--- NOTE | 2019-03-04 06:29 | NUR ---
PT BP 179/51 HR 61 PT DENIES ANY DISTRESS. NO SIGNS OF ACUTE DISTRESS NOTED. DR JAYANT BOLTON.
[2019-03-04 06:34] LABS: BASOPHIL % 0.2 % (0-2); PLATELET COUNT 219 x10^3mcL (130-400)
[2019-03-04 06:37] LABS: CREATININE SERUM 5.6 mg/dL (0.6-1.0)
[2019-03-04 06:39] LABS: RED CELL DISTRIBUTION WIDTH 14.9 % (11.5-14.5)
--- NOTE | 2019-03-04 07:40 | NUR ---
PT AWAKE, DENIES ANY PAIN. NO SIGNS OF DISTRESS NOTED. ENDORSED CARE TO DAY SHIFT RN, ALL QUESTIONS ADDRESSED.
--- NOTE | 2019-03-04 08:00 | NUR ---
SHIFT ASSESSMENT DONE. PATIENT HAS HX OF CVA WITH LT SIDE WEAKNESS. LT FACIAL DROOP (+). DENIED PAIN NOW. TELE#29, PACED 100%; HR, 60'S. DENIED CHEST PAIN. ANURIA. HEMODIALYSIS PATIENT. LAST H/D YESTERDAY. AV SHUNT TO GIFTY ARM. THRILL (+)/ BRUIT (+). NO EDEMA NOTED. GENERAL WEAKNESS. OOB WITH PHYSICAL THERAPIST. IVHL'D TO RFA. CALL LIGHT IN REACH.
[2019-03-04 08:31] VITALS: BP 202/60
--- NOTE | 2019-03-04 08:39 | NUR ---
REPORTED B/P = 202/60; PATIENT C/O NAUSEA. DENIED HEADACHE AND DIZZINESS. ZOFREN 4MG IVP GIVEN AND ANTIHYPERTENSIVES WOULD BE FOLLOWED UP.
--- NOTE | 2019-03-04 11:30 | NUR ---
RECHECKED B/P = 127/45. SITTING IN CHAIR.
[2019-03-04 11:45] VITALS: BP 117/45
[2019-03-04 16:18] VITALS: BP 127/46
--- NOTE | 2019-03-04 18:30 | NUR ---
STATED NO VOIDING, NO BM THIS SHIFT. DR. CARRILLO SAW PATIENT. ORDER OF H/D TOMORROW WRITTEN. CONDITION STABLE. ENDORSED CARE TO NOC NURSE.
--- NOTE | 2019-03-04 19:15 | NUR ---
REPORT RECIEVED FROM DAY SHIFT RN. PATIENT IS RESTING COMFORTABLY IN BED WITH FAMILY AT BEDSIDE. SEIZURE PRECAUTIONS IN PLACE. A/OX4. BREATHING EVEN ON ROOM AIR. NO SOB OR RESP DISTRESS NOTED. DENIES CHEST PAIN. NO C/O PAIN. LUKE AV SHUNT NOTED. IV TO THE RFA. SALINE LOCK. PATENT AND INTACT. NO REDNESS OR SWELLING NOTED. COMFORT AND SAFETY MEASURES MAINTAINED. BED IS LOCKED AND IN THE LOWEST POSITION. PADDED SIDE RAILS UP X2. CALL LIGHT IS WITHIN REACH. INSTRUCTED TO CALL FOR ASSISTANCE. WILL CONTINUE TO MONITOR.
[2019-03-04 21:05] VITALS: BP 148/51
--- NOTE | 2019-03-05 02:16 | NUR ---
PATIENT IS RESTING IN BED WITH EYES CLOSED. NO DISTRESS NOTED. BREATHING EVEN ON ROOM AIR. CALL LIGHT IS WITHIN REACH. WILL CONTINUE TO MONITOR.
[2019-03-05 03:43] VITALS: BP 168/55
--- NOTE | 2019-03-05 03:43 | NUR ---
VS CHECKED. BP HIGH 168/55(92), HR 60 (100% PACED). PAGE GATED DR. SABA. AWAITING ORDERS. PATIENT IS IN NO DISTRESS. DENIES PAIN. CALL LIGHT IS WITHIN REACH. WILL CONTINUE TO MONITOR.
--- NOTE | 2019-03-05 03:48 | NUR ---
WBC: 9.6 [address] PAGED GATED DR SABA AND MADE AWARE.
[2019-03-05 05:34] VITALS: BP 122/56
[2019-03-05 06:20] LABS: BASOPHIL % 0.5 % (0-2); PLATELET COUNT 208 x10^3mcL (130-400)
[2019-03-05 06:22] LABS: RED CELL DISTRIBUTION WIDTH 14.9 % (11.5-14.5)
--- NOTE | 2019-03-05 06:27 | NUR ---
PATIENT SLEPT IN SHORT INTERVALS THROUGHOUT THE NIGHT. NO ACUTE/SIGNIFICANT CHANGES NOTED. BP WENT DOWN. NO MEDS WERE GIVEN. NO C/O PAIN THROUGHOUT THE NIGHT. DENIES CHEST PAIN. IV TO THE RFA. S.L. PATENT AND INTACT. NO REDNESS OR SWELLING NOTED. BREATHING EVEN ON ROOM AIR. AV SHUNT TO LUKE. COMFORT AND SAFETY MEASURES MAINTAINED. CALL LIGHT IS WITHIN REACH. WILL ENDORSE CARE TO ONCOMING RN.
[2019-03-05 06:35] LABS: CARBON DIOXIDE 27.1 mmol/L (21-32); POTASSIUM SERUM 4.4 mmol/L (3.5-5.1)
[2019-03-05 06:55] LABS: CREATININE SERUM 7.1 mg/dL (0.6-1.0)
--- NOTE | 2019-03-05 06:59 | NUR ---
RFA IV CAME OUT. CATHETER INTACT. NEW IV STARTED TO RHE RIGHT WRISTM 24G. PATIENT TOLERATED WELL. PATENT AND INTACT. NO REDNESS OR SWELLING NOTED. FLUSHED WELL. SALINE LOCK.
--- NOTE | 2019-03-05 08:22 | NUR ---
DIALYSIS NURSE AT BEDSIDE AND STARTED THE TREATMENT. PATIENT PATIENT HAS BEEN WITH NAUSEA AND GAVE ZOFRAN ORDERED. PATIENT HAS BEEN WITH DIMINISHED BREATH SOUNDS AND TRACE EDEMA THTAT IS MINIMAL TO THE LOWER EXTREMTIES. PATIENT SI AWAKE AND A LITTLE CONFUSED BUT SHE HAS BEEN ABLE TO FOLLOW DIRRECTIONS SO FAR THIS AM. PATIENTS BP IS ELEVATED AND THE DIALYSIS NURSE WANTS TO HAVE THE BP MEDCATION HELD WHEN STAFF ASKED IF COULD GIVE. PATIENT HAS IV TO [facility] RIGHT WIRST OF 24 SHE HAS PULLED OUT HER IV EALIER AND THIS IS PATENT SO FAR. PATIENT HAS IT HEPLOCKED AT THIS TIME. PATIENT IS WITH DISTENDED BUT SOFT ABDOMEN AND IS IN NO ACUTE PAIN OR DISTRESS AT THIS TIME. WILL CONTINUE TO MONITOR INDICATED. AV SHUNT IS INTACT AND IS IN USE AT THIS TIME.
[2019-03-05 09:28] VITALS: BP 139/54
--- NOTE | 2019-03-05 09:43 | NUR ---
PATIENT IS REQUESTING SOMETHING FOR PAIN. OFFERED HER REGULAR MEDICATION OF NAPROSIN INDICATED. WILL CONTINUE TO MONITOR.
--- NOTE | 2019-03-05 09:51 | NUR ---
WNET TO [facility] ROOM AND FAMILY IS FEEDING THE PATIENT AT THIS TIME. THEY REFUSED THE NAPROXIN AND STATES SHE IS NAUSEATED. THE NURSE AT [facility] IS ASKING FOR REGLAN AND ADVISED SHE HAS RECEIVED ZOFRAN AND SHE IS EATTING NOW SO WILL CONTINUE TO MONITOR FOR ANY ISSUES WITH NAUSEA. NOTED OSCAR ECHEVARRIA ALSO HAD PROTONIX AND HAS A HISTORY OF GERD.
[2019-03-05 11:21] VITALS: BP 155/46
--- NOTE | 2019-03-05 11:34 | NUR ---
POST DIALYSIS AND PATIENT HAD 2600 OUTPUT. PATIENT IS FOR DISCHARGE HOME TODAY. TOLERATE DWELL AND ALL MEDICATION GIVEN ORDERED. POST THE PROCEDURE.
--- NOTE | 2019-03-05 12:17 | NUR ---
PATIENT RESTING QUIETLY AT THIS TIME. PAPERWORK FOR DISCHARGE DONE AND WILL AWAIT TO SEE HOW SHE TOLERATES LUNCH AND THEN IF NO VOMITING WILL BE DISCHAGE HOME.
[2019-03-05 13:12] VITALS: BP 124/63
--- NOTE | 2019-03-05 14:03 | NUR ---
DISCHARGED TO HOME ORDERED AND TO FOLLOW UP [facility] DR CARTER INDIATED. PATIENT IS TO CONTINUE HER HOME MEDICATIONS. DISCHARGE WITH ALL BELONGINGS AND IN NODISTRESS AT TIME OF DISCHARGE. REFUSED THE INSULIN SHE JUST ATE AND THE BLOOD SUGAR AT 221.
--- NOTE | 2019-03-05 14:14 | NUR ---
PHYSICAL THERAPY DAILY NOTES CO-SIGN All documentation done by the Log Driver for 03/05/19 has been reviewed. I agree with the documentation. Reviewed/Co-Signed by: Sophie Yepez PT Documentation Done by:RICKI CHAVARRIA PTA FOR 03/04/19
== END 2019-03-05 14:03 | disposition home or self-care (01) | DRG 682 ==
LOC: ED 23:52 → DU 03-02 02:16
PROVIDERS: Emergency Medicine; Internal Medicine; ADMIT Family Medicine
DX: I12.0 Hypertensive chronic kidney disease with stage 5 chronic kidney disease or end stage renal disease (principal); N18.6 End stage renal disease; N17.0 Acute kidney failure with tubular necrosis; E87.1 Hypo-osmolality and hyponatremia; I69.354 Hemiplegia and hemiparesis following cerebral infarction affecting left non-dominant side; E11.22 Type 2 diabetes mellitus with diabetic chronic kidney disease; E11.65 Type 2 diabetes mellitus with hyperglycemia; E11.21 Type 2 diabetes mellitus with diabetic nephropathy; R29.6 Repeated falls; E78.5 Hyperlipidemia, unspecified; F41.8 Other specified anxiety disorders; E03.9 Hypothyroidism, unspecified; Z95.0 Presence of cardiac pacemaker; Z79.4 Long term (current) use of insulin; Z68.30 Body mass index [BMI] 30.0-30.9, adult; Z91.15 Patient's noncompliance with renal dialysis; I25.10 Atherosclerotic heart disease of native coronary artery without angina pectoris
CPT/HCPCS: 82962; 97116-GP; 97530-GP; C9113; J2405; J7030; Q0092

== ENCOUNTER 2019-06-05 09:20 | Inpatient (IN) | payer OTHER, MEDICAID ==
[~2019-06-05] VITALS: Ht 157.5 cm; Wt 75.0 kg
[2019-06-05 09:29] VITALS: Ht 157.5 cm; Wt 75.0 kg
--- NOTE | 2019-06-05 09:39 | NUR ---
PT PRESENTS TO ED WITH C/O SOB DIFFICULTY BREATHING SINCE THIS MORNING. PT STS SHE'S HAD A PRODUCTIVE COUGHT INTERMITENTLY. PER PT SHE HAS DIALYSIS ON [facility] BUT MISSED HER APPOINTMENT YESTERDAY BECAUSE SHE WAS NOT FEELING WELL. PT DENIES PAIN, DIZZINESS, OR CHEST PAIN. PT AAOX4, RESP E/U, NO ACUTE DISTRESS NOTED AT THIS TIME.
[2019-06-05 10:03] LABS: BASOPHIL % 0.6 % (0-2); PLATELET COUNT 248 x10^3mcL (130-400); RED CELL DISTRIBUTION WIDTH 13.8 % (11.5-14.5)
[2019-06-05 10:18] LABS: ALBUMIN 3.5 g/dL (3.4-5.0); BILIRUBIN TOTAL 0.4 mg/dL (0.20-1.00); CALCIUM 8.6 mg/dL (8.5-10.1); CARBON DIOXIDE 25.3 mmol/L (21-32); TOTAL PROTEIN, SERUM 7.4 g/dL (6.4-8.2)
[2019-06-05 10:28] LABS: CREATININE SERUM 10.1 mg/dL (0.6-1.0)
[2019-06-05 10:30] LABS: POTASSIUM SERUM 7.5 mmol/L (3.5-5.1)
--- NOTE | 2019-06-05 11:50 | NUR ---
REPORT CALLED TO BEATRIS
[2019-06-05] MEDS ORDERED: TRAZODONE50 M1 (12:04)
[2019-06-05] MEDS ORDERED: ATENOLOL25 MG (12:04)
[2019-06-05] MEDS ORDERED: GABAPENTIN100 M2 (12:04)
[2019-06-05] MEDS ORDERED: LANTUS SOLOS100 U/M1 (12:05)
[2019-06-05] MEDS ORDERED: TRAMADOL HCL50 MG (12:05)
[2019-06-05] MEDS ORDERED: LEVOTHYROXIN0.025 M2 (12:05)
[2019-06-05] MEDS ORDERED: NORVASC2.5 MG (12:05)
[2019-06-05] MEDS ORDERED: GOOD SENSE OMEP20 MG (12:05)
[2019-06-05] MEDS ORDERED: [UNRECOGNIZED DRUG - CODE] (12:05)
[2019-06-05 12:40] VITALS: BP 183/57
--- NOTE | 2019-06-05 12:40 | NUR ---
RECEIVED PATIENT FROM ED VIA [facility] ACCOMPANIED BY NURSE, ALERT AND ORIENTED, ABLE TO MAKE NEEDS KNONW AND FOLLOW COMMANDS, GENERALIZED WEAKNESS NOTED, REPORTS PAIN TO BODY 06/30 REQUESTING FOR PAIN MED WILL NOTIFY [employer], ALSO REQUESTING FOR FOOD. DENIES HEADACHE. REPORTS CHEST PAIN MILD PRESSURE LIKE. LUNGS DIM TO BASES, REPORTS COUGH PROD W/ SMALL PHLEGM [place]. STATES HAVING SOME DIFFICULTY BREATHING, BREATHING E/U, O2 SAT 98% ON RA. PERIPHERAL PUSLES PALPABLE, TRACE EDEMA GENERALIZED, 1+ TO BLE'S. AV SHUNT TO LEFT ARM BRUITH/TRHILL NOTED. STATES GETS DIALYZED AT [facility] AND HAS NOT HAD DIALYSIS SINCE SATURDAY. IV SITE TO RAC 22G PATENT AND SITE WNL. VITALS TAKEN, BP ELEVATED 186/56, WILL NOTIFY [employer]. ORIENTED PATIENT TO CALL LIGHT, WITHIN REACH.
--- NOTE | 2019-06-05 13:30 | NUR ---
RECEIVED CONSENT FROM PATIENT VIA TELEPHONE ROUND UP RING HAND FOR HEMODIALYSIS.
[2019-06-05 13:48] VITALS: BP 190/61
--- NOTE | 2019-06-05 14:09 | NUR ---
BLOOD PRESSURE STILL ELEVATED AND NOTIFIED QASIM CASTELLANOS AGAIN. PER PATIENT, SHE HAS NOT TAKEN ANY HOME BLOOD PRESSURE MEDS TODAY. QASIM CASTELLANOS WILL LOOK OVER HOME MEDS, ANTICIPATING NEW ORDERS.
[2019-06-05 15:40] VITALS: BP 173/57
--- NOTE | 2019-06-05 15:42 | NUR ---
HEMODIALYSIS INITIATED. BLOOD PRESSURE 173/57, PATIENT RESTING WITH EYES CLOSED, EASILY ARROUSABLE. WILL CONT TO MONITOR.
--- NOTE | 2019-06-05 17:20 | NUR ---
HEMODIALYSIS COMLETE, 3L OUT. PATIENT TOLERATED WELL, VITALS STABLE. PER DIALYSIS NURSE, POTASSIUM TO BE MONITORED AND MAY ANTICIPATE TO DIALYZE PATIENT AGAIN TOMORROW. PATIENT DENIES PAIN AT THIS TIME. LEFT ARM AV FISTULA DRESSING CDI. NO SIGN OF ACUTE DISTRESS AT THIS TIME. WILL CONT TO MONITOR. CALL LIGHT WITHIN REACH.
[2019-06-05 18:27] VITALS: BP 135/48
--- NOTE | 2019-06-05 19:30 | NUR ---
RECIEVED PATIENT AT START OF SHIFT RESTING, AROUSABLE WITH VERABL STIMULUS. MALAY SPEAKING. AT BEDSIDE TO TRANSLATE. PATIENT STATES SHE FEELS VERY SLEEPY BUT DENIES PAIN. NO SOB ON RA. ON TELE 13 PAGED 100% PACED 63. PULSES MODERATE. +1 PITTING EDEMA NOTED TO BLE. LUKE SHUNT NOTED, WRAPPED WITH DRESSING. IV TO RAC IS SALINE LOCKED AND PATENT. CALL LIGHT AND BEDSIDE TABLE WITHIN REACH.
--- NOTE | 2019-06-05 21:00 | NUR ---
PATIENT REFUSED ALL MEDICATIONS DESPITE EDUCATION. STATED SHE DOESNT NEED THEM OR WANT THEM, EVEN AFTER EXPLAINING THE HERMFUL EFFECTS OF HIGH BLOOD PRESSURE AND HIGH BLOOD SUGAR.
[2019-06-05 22:21] VITALS: BP 151/39
--- NOTE | 2019-06-06 04:30 | NUR ---
PATIENT RIPPED OUT IV IN HER SLEEP. CATHETER INTACT. NEW 22G IV INSERTED ON RIGHT WRIST. PATIENT ALSO GIVEN TYLENOL PER EMAR FOR 5/10 SHOULDER PAIN.
[2019-06-06 05:21] VITALS: BP 136/73
--- NOTE | 2019-06-06 05:57 | NUR ---
PATIENT'S BLOOD SUGAR WAS 153 THIS MORNING. REFUSED DOSE OF REGULAR INSULIN.
--- NOTE | 2019-06-06 05:58 | NUR ---
NO FURTHER SIGNIFICANT EVENTS THIS SHIFT. IV REMAINS SALINE LOCKED AND PATENT ON RIGHT WRIST. DENIES PAIN. NO SOB ON RA. CALL LIGHT AND BEDSDIE TABLE WITHIN REACH. WILL ENDORSE CARE TO DAYSHIFT NURSE
[2019-06-06 07:05] LABS: BASOPHIL % 0.6 % (0-2); PLATELET COUNT 227 x10^3mcL (130-400)
--- NOTE | 2019-06-06 07:10 | NUR ---
RECEIVED REPORT FROM [facility] NURSE, PATIENT RESTING IN BED W/ EYES CLOSED, BREATHING EVEN AND UNLABORED, HOB ELEVATED. AT BEDSIDE. NO SIGN OF ACUTE DISTRESS. WILL CONT TO MONITOR AND ASSESS.
[2019-06-06 07:26] LABS: CALCIUM 8.4 mg/dL (8.5-10.1); CARBON DIOXIDE 29.2 mmol/L (21-32); MAGNESIUM 2.1 mg/dL (1.8-2.4); PHOSPHOROUS 5.7 mg/dL (2.5-4.9); POTASSIUM SERUM 5.5 mmol/L (3.5-5.1)
[2019-06-06 08:19] VITALS: BP 190/44
[2019-06-06 09:22] VITALS: BP 177/57
--- NOTE | 2019-06-06 11:55 | NUR ---
HEMODIALYSIS COMPLETE, 3L OUT. PATIENT C/O NAUSEA, ZOFRAN GIVEN. WILL CONT TO MONITOR. CALL LIGHT WITHIN REACH.
[2019-06-06 12:12] VITALS: BP 165/52
--- NOTE | 2019-06-06 15:16 | NUR ---
PATIENT C/O ABD AND GENERALIZED BODY/BONE PAIN 9 REQUESTING FOR MORPHINE, GIVEN. WILL CONT TO MONITOR.
--- NOTE | 2019-06-06 17:21 | NUR ---
ZOFRAN IVP WAS GIVEN FOR VOMITING X1. PATIENT SITTING UP ON BED, AT BEDSIDE. VITALS STABLE. WILL CONT TO MONITOR.
[2019-06-06 17:24] VITALS: BP 153/84
--- NOTE | 2019-06-06 19:30 | NUR ---
PT RECIEVED FROM DAY NURSE. PT RESTING IN BED COMFORTABLY. AT BEDSIDE. DENIES PAIN AT THIS TIME. BREATHING E/U ON RA. DENIES SOB. TELE 13, PACED. DENIES CP, N/V, DIZZINESS, OR PALPATATIONS AT THIS TIME. PALPABLE PULSES, TRACE EDEMA BUE BLE NOTED. ABD SOFT AND ROUND. DENIES PAIN TO PALPATION. LA SHUNT POS BRUIT AND THRILL. RQ IV, CDI. BED AT LOWEST POSITION. CALL LIGHT WITHIN REACH. WILL CONTINUE TO MONITOR.
--- NOTE | 2019-06-06 20:47 | NUR ---
PT REFUSED TENORMIN, LANTUS, AND HUMALIN AT THIS TIME. STATES SHE DOES NOT NEED IT. EDUCATED PT ON USE AND NEED FOR MEDICATIONS. PT CONTINUED TO REFUSE.
[2019-06-06 21:26] VITALS: BP 156/44
--- NOTE | 2019-06-07 | NUR ---
PT RESTING IN BED COMORTABLY. NO S/S OF PAIN OR DISTRESS AT THIS TIME. BREATHING E/U ON RA. TELE 13 PACED. BED AT LOWEST POSITION. CALL LIGHT WITHIN REACH. WILL CONTINUE TO MONITOR.
--- NOTE | 2019-06-07 04:35 | NUR ---
PT COMPLAINING OF 9/10 BACK PAIN. MEDICATED WITH PRN MORPHINE. WILL CONTINUE TO MONITOR.
[2019-06-07 05:17] VITALS: BP 154/39
--- NOTE | 2019-06-07 06:06 | NUR ---
PT RESTING IN BED COMFORTABLY AT THIS TIME. DENIES PAIN. BREATHING E/U ON RA. PT GLUCOSE 152 THIS AM. PT REFUSED INSULIN COVERAGE. EDUCATED ON NEED AND PURPOSE OF INSULIN. PT CONTINUED TO REFUSE. NO SIGNS OF ACUTE DISTRESS AT THIS TIME. BED AT LOWEST POSITION. CALL LIGHT WITHIN REACH. WILL ENDORSE TO DAY NURSE.
[2019-06-07 06:23] LABS: BASOPHIL % 0.4 % (0-2); PLATELET COUNT 228 x10^3mcL (130-400); RED CELL DISTRIBUTION WIDTH 13.6 % (11.5-14.5)
[2019-06-07 06:56] LABS: CALCIUM 7.8 mg/dL (8.5-10.1); PHOSPHOROUS 5.8 mg/dL (2.5-4.9); POTASSIUM SERUM 4.7 mmol/L (3.5-5.1)
--- NOTE | 2019-06-07 07:00 | NUR ---
RECEIVED REPORT FROM SHAISTA FALCON, PT IN NO ACUTE RESP DISTRESS, AT BEDSIDE
[2019-06-07 07:02] LABS: CREATININE SERUM 5.7 mg/dL (0.6-1.0)
--- NOTE | 2019-06-07 07:50 | NUR ---
PT RESTING IN BED, IN NO ACUTE RESP DISTRESS, VERBAL, TUVALUAN, AT BEDSIDE, NO FACIAL DROOP/SLURRED SPEECH, RESP EVEN, RA, COUGH/SOB AT THIS TIME, DENIED CP/PRESSURE/CUENCA/PAIN, DENIED N/V/D, TELE #13, NSR, HR-81 AT THIS TIME, PACER, ABD SOFT AND NON-TENDER TO TOUCH, BS ACTIVE X 4, CONTINENT, AV SHIFT TO (L) ARM BRUIT/ THRILL ACTIVE, GEN. WEAKNESS, AMBULATE W/ ASSIST, IV PATENT AND NO-INFILTRATION, SKIN W/D/C, PALP PULSES, CAP REFILL < 3 SECS, ALL NEEDS ADDRESSED AT THIS TIME, SAFETY PROTOCOL FOLLOWED, CONTINUE TO MONITOR
--- NOTE | 2019-06-07 08:21 | NUR ---
PT REPORTED NAUSEATED, ZOFRAN 4MG IVP GIVEN X 1 PER MD PRN ORDER VIA EMAR, TAKEN WELL, NO ASE NOTED AT THIS TIME, VS STABLE, AT BEDSIDE, CONTINUE TO MONITOR
--- NOTE | 2019-06-07 08:54 | NUR ---
PT NOT IN ACUTE RESP DISTRESS, AM MED GIVEN PER MD ORDER VIA EMAR, TAKEN WELL, NO ASE NOTED AT THIS TIME, CONTINUE TO MONITOR
[2019-06-07 09:59] VITALS: BP 177/43
[2019-06-07 10:55] VITALS: BP 152/76
[2019-06-07 12:35] VITALS: BP 130/45
--- NOTE | 2019-06-07 14:05 | NUR ---
PT SEEN BY DR CARRILLO, AUTHORIZED PT CLEAR FOR DC HOME, TILE ERECTOR EMANUEL LEWIS PAGED AND MADE AWARE, PT AND FAMILY MEMBERS MADE AWARE
--- NOTE | 2019-06-07 14:54 | NUR ---
IV REMOVED, IV CATH TIP INTACT, NO ACTIVE BLEEDING NOTED, TELE #13 REMOVED AND RETURNED TO [place] [facility]ARC[facility], AT BEDSIDE
--- NOTE | 2019-06-07 15:03 | NUR ---
PT NOT IN ACUTE RESP DISTRESS, AT BEDSIDE, DC PAPER SIGNED AND KEPT IN CHART, PT VERBALIZED IT'S HER RESPONSIBILITY TO F/U WITH PCP AFTER DISCHARGE 3-4 DAYS, EDUCATION GIVEN TO PT AND R/T MEDICAL CONDITION, DIET, F/U, MEDS, SIDE EFFECTS, EMERGENCY CONTACT, VERBALLY UNDERSTANDING, ALL NEEDS ADDRESSED AT THIS TIME, PT ASSISTED TO LOBBY BY NURSING STAFF VIA WC, DRIVE PT HOME. PT D/C HOME WITH
== END 2019-06-07 15:13 | disposition home or self-care (01) | DRG 640 ==
LOC: ED 09:20 → DU 11:12
PROVIDERS: Emergency Medicine; ADMIT Internal Medicine
PROC: 5A1D70Z Performance of Urinary Filtration, Intermittent, Less than 6 Hours Per Day (ICD-10-PCS; principal; 2019-06-05)
PROC: 5A1D70Z Performance of Urinary Filtration, Intermittent, Less than 6 Hours Per Day (ICD-10-PCS; 2019-06-06)
DX: E87.79 Other fluid overload (principal); N17.0 Acute kidney failure with tubular necrosis; N18.6 End stage renal disease; I12.0 Hypertensive chronic kidney disease with stage 5 chronic kidney disease or end stage renal disease; E87.5 Hyperkalemia; R53.1 Weakness; E11.22 Type 2 diabetes mellitus with diabetic chronic kidney disease; E03.9 Hypothyroidism, unspecified; E78.5 Hyperlipidemia, unspecified; M19.90 Unspecified osteoarthritis, unspecified site; Z99.2 Dependence on renal dialysis; Z91.15 Patient's noncompliance with renal dialysis; Z95.0 Presence of cardiac pacemaker; Z79.4 Long term (current) use of insulin
CPT/HCPCS: 82962; 83880; G0378; J1815; J2270; J2405; J3490; J7030; Q0092

== ENCOUNTER 2019-09-19 20:59 | Inpatient (IN) | payer OTHER, MEDICAID ==
[~2019-09-19] VITALS: Ht 157.5 cm; Wt 74.4 kg
[~2019-09-19 20:59] MED LIST changes: +ATENOLOL25 MG; +GABAPENTIN100 M2; +GOOD SENSE OMEP20 MG; +LEVOTHYROXIN0.025 M2; +NORVASC2.5 MG; +TRAMADOL HCL50 MG; +TRAZODONE50 M1; +[UNRECOGNIZED DRUG - CODE]
[2019-09-19 21:03] VITALS: Ht 157.5 cm; Wt 74.4 kg
[2019-09-19 21:48] LABS: PLATELET COUNT 219 x10^3mcL (130-400)
[2019-09-19 21:49] LABS: BASOPHIL % 0 % (0-2); RED CELL DISTRIBUTION WIDTH 14.8 % (11.5-14.5)
[2019-09-19 22:04] LABS: ALKALINE PHOSPHATASE 125 U/L (46-116); ALT/SGPT 15 U/L (14-59); AST/SGOT 11 U/L (15-37); BILIRUBIN TOTAL 0.66 mg/dL (0.20-1.00); CALCIUM 7.7 mg/dL (8.5-10.1); CARBON DIOXIDE 21.4 mmol/L (21-32); CHLORIDE SERUM 91 mmol/L (98-107); GLUCOSE SERUM 271 mg/dL (74-106); SODIUM SERUM 129 mmol/L (136-145); TOTAL PROTEIN, SERUM 7.9 g/dL (6.4-8.2)
[2019-09-19 22:07] LABS: ALBUMIN 3.3 g/dL (3.4-5.0)
[2019-09-19 22:09] LABS: CREATININE SERUM 12.2 mg/dL (0.6-1.0)
[2019-09-19 23:34] VITALS: BP 189/75
[2019-09-20] VITALS (7 sets, daily range): BP systolic 157–189; BP diastolic 41–75
[2019-09-20 06:33] LABS: BASOPHIL % 0.2 % (0-2); PLATELET COUNT 186 x10^3mcL (130-400)
[2019-09-20 06:47] LABS: CALCIUM 7.5 mg/dL (8.5-10.1); CARBON DIOXIDE 21.6 mmol/L (21-32); CHLORIDE SERUM 94 mmol/L (98-107); GLUCOSE SERUM 149 mg/dL (74-106); MAGNESIUM 2.2 mg/dL (1.8-2.4); PHOSPHOROUS 6.4 mg/dL (2.5-4.9); RED CELL DISTRIBUTION WIDTH 14.6 % (11.5-14.5); SODIUM SERUM 132 mmol/L (136-145)
[2019-09-20 06:51] LABS: CREATININE SERUM 12.5 mg/dL (0.6-1.0)
[2019-09-21 05:45] VITALS: BP 171/47
[2019-09-21 06:25] LABS: BASOPHIL % 0.2 % (0-2); PLATELET COUNT 202 x10^3mcL (130-400); RED CELL DISTRIBUTION WIDTH 14.5 % (11.5-14.5)
[2019-09-21 06:45] LABS: CALCIUM 7.9 mg/dL (8.5-10.1); CHLORIDE SERUM 91 mmol/L (98-107); GLUCOSE SERUM 118 mg/dL (74-106); MAGNESIUM 1.9 mg/dL (1.8-2.4); PHOSPHOROUS 5.2 mg/dL (2.5-4.9); POTASSIUM SERUM 4.1 mmol/L (3.5-5.1); SODIUM SERUM 132 mmol/L (136-145)
[2019-09-21 06:50] LABS: CREATININE SERUM 7.2 mg/dL (0.6-1.0)
[2019-09-21 08:56] VITALS: BP 174/51
[2019-09-21 12:42] VITALS: BP 145/41
[2019-09-21] MEDS ORDERED: LEVAQUIN750 MG PO (16:42)
[2019-09-21 16:54] VITALS: BP 147/50
[2019-09-21 16:59] VITALS: BP 147/50
== END 2019-09-21 17:25 | disposition home or self-care (01) | DRG 291 ==
LOC: ED 20:59 → DU 22:24
PROVIDERS: Emergency Medicine; ADMIT Internal Medicine
PROC: 5A1D70Z Performance of Urinary Filtration, Intermittent, Less than 6 Hours Per Day (ICD-10-PCS; principal; 2019-09-20)
DX: I13.2 Hypertensive heart and chronic kidney disease with heart failure and with stage 5 chronic kidney disease, or end stage renal disease (principal); N18.6 End stage renal disease; I50.33 Acute on chronic diastolic (congestive) heart failure; E87.1 Hypo-osmolality and hyponatremia; I16.0 Hypertensive urgency; E87.70 Fluid overload, unspecified; E11.21 Type 2 diabetes mellitus with diabetic nephropathy; E11.22 Type 2 diabetes mellitus with diabetic chronic kidney disease; E87.5 Hyperkalemia; E83.39 Other disorders of phosphorus metabolism; E78.5 Hyperlipidemia, unspecified; I25.10 Atherosclerotic heart disease of native coronary artery without angina pectoris; D63.1 Anemia in chronic kidney disease; E03.9 Hypothyroidism, unspecified; Z91.15 Patient's noncompliance with renal dialysis; Z99.2 Dependence on renal dialysis; Z95.0 Presence of cardiac pacemaker; Z79.82 Long term (current) use of aspirin; Z79.84 Long term (current) use of oral hypoglycemic drugs
CPT/HCPCS: 82962; 97530-GP; G0378; J0360; J0456; J0610; J0696; J7030; J7060; J7620; Q0092